=== PATIENT | male | born 1975 | race Caucasian/White ===

== ENCOUNTER 2016-07-19 20:09 | Emergency (ER) | payer MEDICARE ==
[~2016-07-19] VITALS: Ht 172.7 cm; Wt 82.0 kg
[2016-07-19] MEDS ORDERED: SODIUM CHLORIDE 0.9% 1,000 ML IV ONE (20:33)
[2016-07-19] MEDS ORDERED: SODIUM CHLORIDE FLUSH 10ML SYR IVF ONE (21:00)
[2016-07-19] MEDS ORDERED: SODIUM CHLORIDE 0.9% 1,000ML IVBOLUS ONE (21:00)
[2016-07-19 21:10] LABS: HEMOGLOBIN 14.7 g/dL (13.7-18.0)
[2016-07-19 21:23] LABS: ASPARTATE AMINO TRANSFERASE 37 U/L (15-37); BLOOD UREA NITROGEN 11 mg/dL (7-18)
[2016-07-20 02:17] VITALS: BP 112/67
== END 2016-07-20 02:18 | disposition home or self-care (01) ==
LOC: ED 23:59
DX: F10.120 Alcohol abuse with intoxication, uncomplicated (principal); F15.129 Other stimulant abuse with intoxication, unspecified; F31.9 Bipolar disorder, unspecified
CPT/HCPCS: 36415; 80053; 80307; 81003; 85025; 96360; 96361; 99285; J7030

== ENCOUNTER 2016-10-01 21:09 | Emergency (ER) | payer MEDICARE ==
[~2016-10-01] VITALS: Ht 172.7 cm; Wt 80.0 kg
[2016-10-01 21:32] LABS: DAU SCREEN DISCLAIMER
[2016-10-01 21:56] LABS: ASPARTATE AMINO TRANSFERASE 227 U/L (15-37); BLOOD UREA NITROGEN 11 mg/dL (7-18)
[2016-10-01 22:00] LABS: ACETAMINOPHEN < 2 mcg/mL (10-30)
[2016-10-01 22:31] VITALS: BP 132/79
== END 2016-10-01 22:38 | disposition home or self-care (01) ==
LOC: ED 22:32
DX: F31.9 Bipolar disorder, unspecified (principal); R79.89 Other specified abnormal findings of blood chemistry
CPT/HCPCS: 36415; 80053; 80307; 80329; 81003; 85025; 99284; G0480

== ENCOUNTER 2017-04-08 22:07 | Emergency (ER) | payer MEDICARE ==
[~2017-04-08] VITALS: Ht 172.7 cm; Wt 84.6 kg
[2017-04-08 22:31] VITALS: BP 129/87
== END 2017-04-08 23:28 | disposition home or self-care (01) ==
LOC: ED 23:22
DX: J20.8 Acute bronchitis due to other specified organisms (principal); B96.89 Other specified bacterial agents as the cause of diseases classified elsewhere; F10.129 Alcohol abuse with intoxication, unspecified; F31.9 Bipolar disorder, unspecified; Z59.0 Homelessness
CPT/HCPCS: 99283